=== PATIENT | female | born 1975 | race Caucasian/White ===

== ENCOUNTER → 2019-12-01 08:00 | Outpatient (CLI) | payer MEDICAID, SELFPAY ==
[2019-10-22 08:09] VITALS: BMI 31.2
--- NOTE | 2019-12-01 10:22 | PFTCOMP ---
COMPLETE PULMONARY FUNCTION TEST INTERPRETATION Brief HPI: Patient is a 44 year old Black female, currently under the care of Mariela Goodrich, who presents to [facility] for complete pulmonary function tests secondary to diagnosis of dyspnea. Respiratory therapist reports good effort and reproducible results. Interpretation: Forced expiration spirometry shows no large airways obstructive ventilatory defect with an FEV1 of 132% predicted. There is no significant bronchodilator response by strict ATS criteria. Spirograms are of good quality and plateau normally. The respiratory flow volume loop shows a normal pattern. Lung volumes by body plethysmography show a normal total lung capacity at 4.61 L, 104% predicted. All other lung volumes are within normal limits. Diffusion capacity by carbon monoxide is normal at 76% predicted. The airway resistance is normal. No previous pulmonary function tests were available for review. Impression: These pulmonary function tests are within normal limits
== END ==
PROVIDERS: PCP Nurse Practitioner Family; Referring Provider Nurse Practitioner Acute Care; Visit Provider Nurse Practitioner Acute Care
DX: R06.02 Shortness of breath (principal)
CPT/HCPCS: 94060; 94726; 94729

== ENCOUNTER → 2019-12-22 09:54 | Outpatient (CLI) | payer MEDICAID, SELFPAY ==
[2019-10-22 08:09] VITALS: BMI 31.2
--- NOTE | 2019-12-22 09:54 | ECHOCS_ITS ---
Reason For Study: DYSPNEA Procedure This was a 2D Doppler, Color Flow transthoracic echocardiogram. Exam performed in department. Left Ventricle Normal LV size. Left ventricular systolic function is normal. The estimated ejection fraction is 65 %. Stage 1 diastolic dysfunction. No regional wall motion abnormalities noted. Right Ventricle Normal RV size. Normal systolic function. Atria Normal left atrium. Normal right atrium. Mitral Valve Normal mitral valve. Mild (1+) eccentric mitral valve insufficiency. Tricuspid Valve Normal tricuspid valve. Mild tricuspid valve insufficiency. Pulmonary artery systolic pressure is 28 mmHg. Aortic Valve Trisinus/trileaflet aortic valve. Pulmonic Valve Normal pulmonic valve. Great Vessels Normal aortic root. The pulmonary artery is normal size. Normal inferior vena cava. Pericardium/Pleural No pericardial effusion. Medication 22 gauge I.V. with prn adaptor inserted into right arm. Diluted definity 3.5ml given slow IV push to enhance endocardial definition. MMode/2D Measurements & Calculations LVIDd: 4.5 cm IVSd: 0.64 cm Ao root diam: 3.1 cm LVIDs: 3.1 cm LVPWd: 0.66 cm RVDd: 3.0 cm FS: 30.9 % LAV(MOD-bp): 39.0 ml LVAd ap4: 27.1 cm2 SV(MOD-sp4): 49.9 ml LAV(MOD-bp) Indexed: 22.7 ml/m2 EDV(MOD-sp4): 71.5 ml LAV(MOD-sp2): 29.9 ml EDV(sp4-el): 72.7 ml LAV(MOD-sp4): 41.0 ml LVAs ap4: 12.8 cm2 ESV(MOD-sp4): 21.5 ml ESV(sp4-el): 22.1 ml EF(MOD-sp4): 69.9 % EF(sp4-el): 69.5 % SV(sp4-el): 50.5 ml LA A4 area: 16.1 cm2 LA dimension(2D): 3.8 cm RA A4 area: 13.6 cm2 Time Measurements MV dec time: 0.39 sec Doppler Measurements & Calculations MV E max sharan: 55.3 cm/sec Lat Peak E' Sharan: 9.8 cm/sec Med Peak E' Sharan: 6.6 cm/sec MV A max sharan: 79.9 cm/sec E/E' lat: 5.6 E/E' med: 8.4 MV E/A: 0.69 Ao V2 max: 130.1 cm/sec LV V1 max: 117.6 cm/sec PA V2 max: 98.2 cm/sec Ao max P.8 mmHg LV V1 max P.5 mmHg TR max sharan: 244.2 cm/sec TR max P.8 mmHg Interpretation Summary Normal LV size. Left ventricular systolic function is normal. The estimated ejection fraction is 65 %. Pulmonary artery systolic pressure is 28 mmHg. Stage 1 diastolic dysfunction. Contrast injection was performed. Ordering Physician: Yang Ames Referring Physician: ADAM RENAE Performed By: Luz Maria Romero, ROSALIE, RVT
== END ==
PROVIDERS: PCP Nurse Practitioner Family; Referring Provider Internal Medicine Critical Care Medicine; Visit Provider Internal Medicine Critical Care Medicine
DX: R06.02 Shortness of breath (principal)
CPT/HCPCS: 93306; Q9957; A4216; C8929

== ENCOUNTER → 2020-01-20 13:36 | Outpatient (CLI) | payer MEDICAID, SELFPAY ==
[2020-01-05 09:01] VITALS: BMI 32.8
[2020-01-20 14:08] VITALS: PULSE 100; PULSE 104; PULSE 105; PULSE 106; PULSE 109; PULSE 87; PULSE 91; PULSE 93; O2SAT 96; O2SAT 97; O2SAT 98; O2SAT 99
--- NOTE | 2020-01-21 13:10 | WT_ITS ---
PSN 6 Minute Walk Test - 6 Minute Walk Test 6 Minute Walk Test: 6 Minute Walk Test PSN:6-Minute Walk Test Start: 01/20/20 14:08 Freq: Status: Active Protocol: [id number] Document 01/20/20 14:08 [facility] (Rec: 01/20/20 14:14 [facility] [id number]) 6 Minute Walk Test Date Performed 01/20/20 Time Performed 13:45 Height 5 ft 1 in Weight: 165 lb Weight in Pounds 165.[address]: Anaid BUNDY Assistive device used: None Pre-test Oxygen Delivery Method Room Air Pulse Ox (%) 98 Pulse Rate (60-100 beats/min) 87 Dyspnea Cuco Scale (0-10) 1 Exertion Cuco Scale (6-20) 6 1st minute Oxygen Delivery Method Room Air Pulse Ox (%) 96 Pulse Rate (60-100 beats/min) 109 H 2nd minute Oxygen Delivery Method Room Air Pulse Ox (%) 99 Pulse Rate (60-100 beats/min) 100 3rd minute Oxygen Delivery Method Room Air Pulse Ox (%) 98 Pulse Rate (60-100 beats/min) 104 H 4th minute Oxygen Delivery Method Room Air Pulse Ox (%) 98 Pulse Rate (60-100 beats/min) 105 H 5th minute Oxygen Delivery Method Room Air Pulse Ox (%) 98 Pulse Rate (60-100 beats/min) 106 H 6th minute Oxygen Delivery Method Room Air Pulse Ox (%) 97 Pulse Rate (60-100 beats/min) 93 Dyspnea Cuco Scale (0-10) 2 Exertion Cuco Scale (6-20) 11 Post-test Oxygen Delivery Method Room Air Pulse Ox (%) 98 Pulse Rate (60-100 beats/min) 91 Full Laps Walked 25 Partial Lap, Number of Tiles Walked 39 Total Distance Walked (ft) 1514 - Interpretation Interpretation: The patient ambulated 1514 feet over the course of 6 minutes beginning on room air without assistive devices or breaks. Pretesting oxygen saturation was noted to be 98% on room air. With ambulation, the becca oxygen saturation was 96%. There was no significant exertional oxygen desaturation. - Recommendations Recommendations: There is no indication for the use of supplemental oxygen at this time.
== END ==
PROVIDERS: PCP Nurse Practitioner Family; Referring Provider Nurse Practitioner Acute Care; Visit Provider Nurse Practitioner Acute Care
DX: R06.02 Shortness of breath (principal)
CPT/HCPCS: 94618

== ENCOUNTER → 2020-01-26 22:31 | Outpatient (CLI) | payer MEDICAID, SELFPAY ==
[2020-01-05 09:01] VITALS: BMI 32.8
== END ==
PROVIDERS: PCP Nurse Practitioner Family; Referring Provider Nurse Practitioner Acute Care; Visit Provider Nurse Practitioner Acute Care
DX: G47.33 Obstructive sleep apnea (adult) (pediatric) (principal)
CPT/HCPCS: 95810

== ENCOUNTER → 2022-05-18 | Outpatient (CLI) | payer MEDICAID, SELFPAY ==
[2022-05-18 15:34] LABS: Absolute Lymphocyte Count 2.39 X10^3/uL (0.83-4.51); Absolute Neutrophil Count 3.5 X10^3/uL (2.0-7.7); Basophil# 0.03 X10^3/uL; Basophil% 0.5 % (0-1); Eosinophil# 0.08 X10^3/uL; Eosinophils% 1.2 % (0-5); Hematocrit 38.7 % (37-47); Hemoglobin 13.4 g/dL (12.0-15.0); Lymphocyte # 2.39 X10^3/ul (0.83-4.51); Lymphocyte % 37.2 % (19-41); Mean Corp Hgb Conc 34.6 g/dL (32-36); Mean Corpuscular Hgb 30.9 pg (27.0-32.0); Mean Corpuscular Volume 89.4 fL (81-99); Mean Platelet Vol. 10.8 fl (6.2-12.0); Monocyte# 0.46 X10^3/uL; Monocyte% 7.2 % (0-10); NRBC Flagged by Analyzer 0 % (0-5); Neutrophil # 3.45 X10^3/uL (2.7-7.7); Neutrophil % 53.6 % (47-70); Platelet Count 320 K/mm3 (150-450); RBC Distribution Width CV 11.7 % (11.6-14.6); RBC Distribution Width SD 37.5 fl (35.1-43.9); Red Blood Count 4.33 M/mm3 (4.2-5.4); White Blood Count 6.4 K/mm3 (4.4-11.0)
[2022-05-18 16:20] LABS: ALB/GLOB Ratio 0.9 RATIO (0.9-2.4); AST(SGOT) 15 U/L (15-37); Alanine Aminotransfer ALT/SGPT 24 U/L (13-56); Albumin, Serum 3.9 g/dL (3.2-5.0); Alkaline Phosphatase 83 U/L (45-117); Anion Gap 10 (5-15); BUN 14 mg/dL (7-18); BUN/Creat Ratio 21.9 RATIO (10-20); Calcium,Total 9.5 mg/dL (8.5-10.1); Chloride 103 mmol/L (98-107); Creatinine, Serum 0.64 mg/dL (0.55-1.02); EST Glomerular Filtration Rate 106 mL/min (>60); Est Glom Filt Rate - Afr Amer 128 mL/min (>60); Globulin 4.2 g/dL (2.2-4.2); Glucose 89 mg/dL (74-106); Protein, Total 8.1 g/dL (6.4-8.2); Sodium Level 139 mmol/L (136-145); Thyroid Stim Hormone (TSH) 1.07 uIU/mL (0.358-3.74)
[2022-05-22 12:08] LABS: PROEL- A/G Ratio 1.2 (0.7-1.7); PROEL- Albumin 4.1 g/dL (2.9-4.4); PROEL- Alpha-1 Globulin 0.3 g/dL (0.0-0.4); PROEL- Alpha-2 Globulin 0.8 g/dL (0.4-1.0); PROEL- Gamma Globulin 1.2 g/dL (0.4-1.8); PROEL- Globulin, Total 3.4 g/dL (2.2-3.9); PROEL- TOTAL PROTEIN 7.5 g/dL (6.0-8.5)
[2022-05-22 18:47] LABS: Lyme Scn Total Ab w/Rflx Negative (Negative)
== END | disposition home or self-care (01) ==
LOC: MFPLAB 12:09
PROVIDERS: PCP Family Medicine; Referring Provider Family Medicine; Visit Provider Family Medicine
DX: I88.9 Nonspecific lymphadenitis, unspecified (principal)
CPT/HCPCS: 36415; 80053; 84165; 84443; 85025; 86140; 86618

== ENCOUNTER 2022-05-26 12:03 | Outpatient (CLI) | payer MEDICAID, SELFPAY ==
--- NOTE | 2022-05-26 12:06 | US_ITS ---
INDICATION: R cervical adenopathy EXAMINATION: US Head/Neck Soft Tissue TECHNIQUE: Nowak scale and color doppler imaging was performed of the soft tissues of neck at region of clinical concern. COMPARISON: None. FINDINGS: There are 2 separate hypoechoic lymph nodes within region of clinical concern at posterolateral right neck. Largest lymph node measures 2.7 x 0.6 x 1.1 cm. Smaller lymph node measures 1.0 x 0.4 x 0.5 cm. No organized fluid collection detected. US/Head/Neck Soft Tissue IMPRESSION: Lymph nodes within right posterolateral neck, largest measuring 6 mm short axis diameter and 2.7 cm long diameter. Follow-up as clinically warranted. Electronically Signed: Jose Mcwilliams MD at 6:17 EST ,
== END 2022-05-26 23:59 | disposition home or self-care (01) ==
LOC: US 12:06
PROVIDERS: PCP Family Medicine; Visit Provider Family Medicine
DX: I88.9 Nonspecific lymphadenitis, unspecified (principal); R19.5 Other fecal abnormalities
CPT/HCPCS: 76536; 83630; 83986; 87506

== ENCOUNTER → 2022-05-26 | Outpatient (CLI) | payer MEDICAID, SELFPAY | END | disposition home or self-care (01) | LOC: LABSPEC 11:16 | PROVIDERS: PCP Family Medicine; Referring Provider Family Medicine; Visit Provider Family Medicine | DX: R19.5 Other fecal abnormalities (principal) | CPT/HCPCS: 83986; 87506; 83630 ==

== ENCOUNTER → 2022-07-27 | Outpatient (CLI) | payer MEDICAID, SELFPAY ==
[2022-07-27 13:06] LABS: Lipase 44 U/L (13-75)
[2022-07-28 15:08] LABS: Endomysial Antibody IgA Negative (Negative); Immunoglobulin A 246 mg/dL (87-352); t-Transglutaminase IgA <2 U/mL (0-3)
[2022-07-30 15:07] LABS: Anti-Centromere B Ab <0.2 AI (0.0-0.9); Anti-Chromatin <0.2 AI (0.0-0.9); Anti-Jo <0.2 AI (0.0-0.9); Anti-Scleroderma-70 AB <0.2 AI (0.0-0.9); Anti-dsDNA Ab <1 IU/mL (0-9); Beef <0.10 kU/L (Class 0); Chocolate <0.10 kU/L (Class 0); Corn <0.10 kU/L (Class 0); Egg, Whole <0.10 kU/L (Class 0); Milk (Cow) <0.10 kU/L (Class 0); Peanut <0.10 kU/L (Class 0); Pork <0.10 kU/L (Class 0); RNP Ab <0.2 AI (0.0-0.9); SJOGREN'S Anti-SS-A test < 0.2 AI (0.0-0.9); SJOGREN'S Anti-SS-B test < 0.2 AI (0.0-0.9); Smith Ab <0.2 AI (0.0-0.9); Soybean <0.10 kU/L (Class 0); Wheat <0.10 kU/L (Class 0)
== END | disposition home or self-care (01) ==
PROVIDERS: PCP Family Medicine; Referring Provider Nurse Practitioner Adult Health; Visit Provider Nurse Practitioner Adult Health
DX: R10.9 Unspecified abdominal pain (principal); R19.7 Diarrhea, unspecified; R11.10 Vomiting, unspecified
CPT/HCPCS: 36415; 82784; 83516; 83690; 86003; 86005; 86225; 86235; 86255

== ENCOUNTER → 2022-08-04 | Outpatient (CLI) | payer MEDICAID, SELFPAY ==
--- NOTE | 2022-08-04 10:54 | US_ITS ---
STUDY: ABDOMINAL ULTRASOUND REASON FOR EXAM: Female, 47 years old. Abdominal pain. Diarrhea. Vomiting. TECHNIQUE: Transabdominal ultrasound was performed with real-time and static george scale imaging. TECHNICAL QUALITY: Adequate. COMPARISON: None. FINDINGS: Liver: The liver measures 14 cm. There is increased echogenicity consistent with fatty infiltration. The bile ducts are within normal limits. There is hepatic color flow. The direction of portal flow is hepatopetal. There is no demonstrated mass lesion. Portal vein measurement: Gallbladder: The patient is status post cholecystectomy. Common Bile Duct (C.B.D.): The common bile duct measures 5.6 mm. Pancreas: Normal size of the head, body and tail of the pancreas. There is normal echogenicity of the pancreas. There is no demonstrated pancreatic mass or cyst. Spleen: Normal size of the spleen. The spleen measures 10.4 cm x 4.9 cm x 4.7 cm. Right Kidney: Normal size of the right kidney. The right kidney measures 10.8 cm x 5 cm x 5.3 cm. Normal renal cortex. The right cortex measures 1.6 cm. There is no demonstrated renal mass or cyst. There is no right hydronephrosis. Findings suggestive of a 2 tiny nonobstructive calculi in the kidney. The larger measures 3 mm x 3 mm x 2 mm. This is in the upper pole. Left Kidney: Normal size of the left kidney. The left kidney measures 10.3 cm x 4.6 cm x 4.8 cm. Normal renal cortex. The left cortex measures 1.2 cm. There is no demonstrated renal mass or cyst. There is no left hydronephrosis. Aorta: Unremarkable. I.V.C.: The IVC is patent. There is no ascites. US/Abdomen Complete IMPRESSION: Status post cholecystectomy. Fatty infiltration of the liver. 2 tiny nonobstructive right intrarenal calculi. Electronically Signed: Ochoa Friend MD at 12:59 EDT ,
== END | disposition home or self-care (01) ==
LOC: US 10:53
PROVIDERS: PCP Family Medicine; Referring Provider Nurse Practitioner Adult Health; Visit Provider Nurse Practitioner Adult Health
DX: R10.9 Unspecified abdominal pain (principal); R19.7 Diarrhea, unspecified
CPT/HCPCS: 76700

== ENCOUNTER → 2022-08-17 | Outpatient (CLI) | payer MEDICAID, SELFPAY ==
[2022-08-27 18:07] LABS: Calprotectin, Stool 7 ug/g (0-120)
== END | disposition home or self-care (01) ==
LOC: LABSPEC 17:41
PROVIDERS: PCP Family Medicine; Visit Provider Nurse Practitioner Adult Health
DX: R10.9 Unspecified abdominal pain (principal); R19.7 Diarrhea, unspecified
CPT/HCPCS: 83993

== ENCOUNTER → 2022-08-18 | Outpatient (CLI) | payer MEDICAID, SELFPAY ==
--- NOTE | 2022-08-18 17:47 | CT_ITS ---
STUDY: CT ABDOMEN AND PELVIS WITH CONTRAST REASON FOR EXAM: Female, 47 years old. abd pain, diarrhea RADIATION DOSAGE (If Supplied By Facility): CTDIvol = ( 19.69 ) mGy, DLP = ( 806.35 ) mGycm TECHNIQUE: Transaxial images were obtained from the dome of the diaphragm to the symphysis pubis without oral contrast. Oral and amp; IV Readi-CAT and amp; 100mL Isovue-370 was administered. Sagittal and coronal images were reconstructed. Individualized dose optimization techniques were used for this CT. COMPARISON: None. FINDINGS: The visualized lung bases are unremarkable. The visualized portions of the heart are within normal limits. Normal liver. There are surgical clips in the gallbladder fossa consistent with a prior cholecystectomy. Normal spleen. Normal pancreas. Normal bilateral adrenal glands. There are no acute abnormalities of the kidneys. Kidneys have bilateral small lower pole nonobstructing stones measuring as much as 3 mm. Normal visualized stomach. Normal small intestine. Normal colon. There are surgical clips in the region of the appendix consistent with a prior appendectomy. Normal abdominal aorta. Normal inferior vena cava. Normal retroperitoneum. Normal urinary bladder. There is absence of the uterus consistent with a prior hysterectomy. Normal abdominal wall. Normal osseous structures. CT/Abdomen/Pelvis WITH Contrast IMPRESSION: No definite acute abnormality. Small nonobstructing stones in the lower poles of both kidneys. Cysts Electronically Signed: Morro Perrin MD at 16:37 EDT ,
== END | disposition home or self-care (01) ==
LOC: CT 17:45
PROVIDERS: PCP Family Medicine; Referring Provider Nurse Practitioner Adult Health; Visit Provider Nurse Practitioner Adult Health
DX: R10.9 Unspecified abdominal pain (principal); R19.7 Diarrhea, unspecified
CPT/HCPCS: 74177; Q9967

== ENCOUNTER 2022-10-03 13:57 | Day surgery (SDC) | payer MEDICAID, SELFPAY ==
[2022-10-03 14:24] VITALS: BP 125/77; PULSE 85; RESP 18; TEMP 36.4; O2SAT 99; BMI 29.9
[2022-10-03] MEDS: Lactated Ringers 1,000 ML 15 ML IV (14:36)
--- NOTE | 2022-10-03 15:00 | EGD_PTH ---
PATIENT: LYNNE KAPOOR LOC: BOB U#:[id number] AGE/SX: 47/F ROOM: RE10/03/[address]: Dr. Tanner Sylvester DO : 1975 BED: DIS: 10/03/2022 SPEC #: [id number] RECD: 10/03/22 16:55 STATUS: ALBARO KEHINDE #: [id number] NILA: 10/03/22 15:[address]: Tanner Sylvester DEPT: SURGICAL PATHOLOGY RECD BY: Emy Mullins ENTERED: 10/04/22 09:26 SP TYPE: EGD BIOPSY BAILEY DR: Dr. Ananda Noriega MD Tissues: A - Duodenum, NOS B - Esophagus, NOS C - Ileum, NOS D - Cecum, NOS E - COLON BIOPSY F - Sigmoid colon biopsy Procedures: Surgery Specimen Level IV HEADER OPERATION: Colonoscopy with biopsies, EGD with biopsies (MAC) PRE-OP DIAGNOSIS: Diarrhea, fatty liver, liver lesion TISSUE SUBMITTED: A - Duodenum, B - Distal esophagus, C - Terminal ileum, D - Cecal biopsy, E - Random colon, F - Sigmoid and rectum MICROSCOPIC DIAGNOSIS A. Duodenum, biopsy: No pathologic change. B. Distal esophagus, biopsy: Gastroesophageal junctional mucosa with mild chronic inflammation. Focal changes of reflux. No evidence of goblet cell metaplasia. See comment. C. Terminal ileum, biopsy: No pathologic change. D. Cecum, biopsy: Mild melanosis coli. E. Colon, random biopsy: No pathologic change. F. Sigmoid colon and rectum, biopsies: Focal hyperplastic change. AM:erendira 10/05/2022 COMMENT B. Alcian blue/PAS stain with matched control supports the above diagnosis. MICROSCOPIC DESCRIPTION Slides are reviewed. GROSS DESCRIPTION A - Received in fixative is one container labeled with the patient's name and designated duodenum biopsy. The specimen consists of multiple irregular fragments of light holland soft tissue that in aggregate measure 1.5 x 0.4 x 0.1 cm. The specimen is totally submitted in one cassette. B - Received in fixative is one container labeled with the patient's name and designated distal esophagus. The specimen consists of multiple irregular fragments of light holland soft tissue that in aggregate measure 1.0 x 0.3 x 0.1 cm. The specimen is totally submitted in one cassette. C - Received in fixative is one container labeled with the patient's name and designated terminal ileum. The specimen consists of multiple irregular fragments of light holland soft tissue that in aggregate measure 0.8 x 0.4 x 0.1 cm. The specimen is totally submitted in one cassette. D - Received in fixative is one container labeled with the patient's name and designated cecal biopsy. The specimen consists of multiple irregular fragments of light holland soft tissue that in aggregate measure 1.5 x 0.3 x 0.1 cm. The specimen is totally submitted in one cassette. E - Received in fixative is one container labeled with the patient's name and designated random colon biopsy. The specimen consists of multiple irregular fragments of light holland soft tissue that in aggregate measure 1.0 x 0.3 x 0.1 cm. The specimen is totally submitted in one cassette. F - Received in fixative is one container labeled with the patient's name and designated sigmoid and rectum. The specimen consists of multiple irregular fragments of light holland soft tissue that in aggregate measure 1.0 x 0.3 x 0.1 cm. The specimen is totally submitted in one cassette. / SJ:rg 10/04/2022 TC:3 CPT: 01514 x6, 31534
--- NOTE | 2022-10-03 15:32 | HP.PCM_ITS ---
History and Physical Date of Admission: 10/03/22 Chief Complaint: cyclical vomiting, diarrhea Details: LYNNE KAPOOR, is a 47 F who presents to the office today to establish with Gastroenterology for episodes of vomiting, as well as other GI symptoms that occur more frequently. The vomiting episodes have occurred since 2013 when she had her last child. 2-3x per year gets episode of nausea and vomiting to the point of hematemesis. Etiology is unknown. No triggers she can discern. Symptoms may last a few days. On a more regular basis she deals with heartburn, gas, bloating, abdominal pain, and diarrhea. Omeprazole helps with heartburn, otherwise has esophageal burning and bad taste. Rare feeling of food getting stuck. Lots of gas, bloating. Has epigastric discomfort when bloated. Gets squeezing abdominal pain, occurs at least 2x per week, across middle of abd, doesn't radiate, not related to BMs necessarily, no relieving factors, thinks maybe it's gas. Almost never has solid stool, always runny or very soft. Can be dark tarry. No hematochezia. Can have days of no BM, then other days she has urgent frequent BMs. Not related to eating. No triggers other than dairy which she avoids. Poor appetite. Gets full quickly. No nausea or vomiting except during the episodes a few times a year. Neg stool lactoferrin, neg enteric pathogens CRP 13, K+3 Always cold Comorbidities include MARLEN, anxiety, depression, PSH: hysterectomy, cholecystectomy, , tubal ligation, appy ROS Const Constitutional: Positive for fatigue and weight change (weight loss); No fever(s), frequent falls or headache(s) ENT ENT: No headache(s) or difficulty swallowing Cardio Cardiology: No leg pain with exertion Gastro GI: Positive for bloating, diarrhea and heartburn; No abdominal pain, change in bowel habits, constipation, difficulty swallowing, Vomiting blood/hematemesis, Blood in stool, nausea/dyspepsia or vomiting Musc Musculoskeletal: Positive for joint pain, back pain and stiffness; No abnormal gait, joint swelling, muscle cramps, muscle weakness, numbness, tingling, Arthritis, sciatica, leg pain at night or leg pain with exertion Skin Skin: No dry skin, lesions, itchy eyes or rash Neuro Neurology: No abnormal gait, dizziness, frequent falls, headache(s), numbness, tingling, tremor(s), Increased tone in limbs, paralysis or seizures Psych Psychiatric: Positive for anxiety, Positive for depression, No paranoia, No Behavioral Problems, No Compulsive Behavior, No hyperactivity, No inattentiveness, No obsessions/compulsions, No Temper Tantrums and No suicidal ideation Endo Endocrine: Positive for fatigue and weight change (weight loss) Aller/Imm Allergy/Immunologic: No itchy eyes Patrice/Lymp Hematologic/Lymphatic: Positive for easy bruising; No easy bleeding Exam Const General: cooperative, comfortable and no acute distress Nutritional Appearance: overweight Orientation: alert, awake and oriented x3 HENMT Head: normal to inspection Eyes Sclera: sclerae normal Resp Effort & Inspection: normal respiratory effort GI Inspection: normal to inspection Palpation: soft, no hepatosplenomegaly, no masses and nontender Skin General: no rashes or lesions noted Neuro Gait: normal gait Psych Mood: euthymic mood Quality Reporting Tobacco Screening ([facility] 138) Smoking Status: Never smoker Assessment and Plan Assessment and Plan (1) Diarrhea: Status: Chronic Plan: 47 yr old female with 9 yr hx of episodic vomiting, approx 3x per yr, as well as ongoing heartbun, bloating, gas, abd pain and diarrhea. DDx includes IBS, IBD, celiac, bile acid reflux, bile diarrhea Blood tests for IBD, celiac, pancreas, food allergies Stool calprotectin US then CT EGD and colonoscopy Dicyclomine 10 mg bid (2) Abdominal pain: Status: Chronic Plan: as above (3) Vomiting: Status: Chronic Plan: as above Orders: Orders Miscellaneous Lab Procedure Today R10.9 - Unspecified abdominal pain, R19.7 - Diarrhea, unspecified Allergen, Rast Food Profile Today R10.9 - Unspecified abdominal pain, R19.7 - Diarrhea, unspecified MISTY Comprehensive Panel Today R10.9 - Unspecified abdominal pain, R19.7 - Diarrhea, unspecified Calprotectin, Stool Today R10.9 - Unspecified abdominal pain, R19.7 - Diarrhea, unspecified Celiac Disease Profile Today R10.9 - Unspecified abdominal pain, R19.7 - Diarrhea, unspecified Abdomen Complete Today R10.9 - Unspecified abdominal pain, R19.7 - Diarrhea, unspecified Lipase Today R10.9 - Unspecified abdominal pain, R11.10 - Vomiting, unspecified, R19.7 - Diarrhea, unspecified Medications: New dicyclomine 10 mg PO BID 60 caps 2RF I have examined the patient and the H&P has been reviewed. There are no clinical changes since date of exam.
[2022-10-03 16:10] VITALS: BP 125/77; BP 150/85; PULSE 86; RESP 20; TEMP 36.6; O2SAT 98
--- NOTE | 2022-10-03 16:12 | OP.EGD_ITS ---
Patient Name: Sunshine Kauffman Procedure Date: 10/03/2022 3:27 PM Date of : 1975 Age: 47 Procedure: Upper GI endoscopy Indications: Epigastric abdominal pain, Functional Dyspepsia Providers: Tanner Sylvester DO Medicines: Monitored Anesthesia Care Patient Profile: This is a 47 year old female. Refer to note in patient chart for documentation of history and physical. Patient has symptoms of chronic abdominal cramping and chronic epigastric abdominal pain. Complications: No immediate complications. Procedure: Pre-Anesthesia Assessment: - Prior to the procedure, a History and Physical was performed, and patient medications and allergies were reviewed. The patient is competent. The risks and benefits of the procedure and the sedation options and risks were discussed with the patient. All questions were answered and informed consent was obtained. Patient identification and proposed procedure were verified by the physician. Mental Status Examination: normal. CV Examination: normal. Prophylactic Antibiotics: The patient does not require prophylactic antibiotics. Prior Anticoagulants: The patient has taken no previous anticoagulant or antiplatelet agents. After reviewing the risks and benefits, the patient was deemed in satisfactory condition to undergo the procedure. The anesthesia plan was to use monitored anesthesia care (MAC). Immediately prior to administration of medications, the patient was re-assessed for adequacy to receive sedatives. The heart rate, respiratory rate, oxygen saturations, blood pressure, adequacy of pulmonary ventilation, and response to care were monitored throughout the procedure. The physical status of the patient was re-assessed after the procedure. After obtaining informed consent, the endoscope was passed under direct vision. Throughout the procedure, the patient's blood pressure, pulse, and oxygen saturations were monitored continuously. The pediatric colonoscope was introduced through the mouth, and advanced to the second part of duodenum. The upper GI endoscopy was accomplished without difficulty. The patient tolerated the procedure well. Scope In: 3:42:07 PM Scope Out: 3:46:12 PM Total Procedure Duration Time 0 hours 4 minutes 5 seconds Findings: The Z-line was irregular and was found 38 cm from the incisors. Biopsies were taken with a cold forceps for histology. Verification of patient identification for the specimen was done. Estimated blood loss was minimal. A medium-sized hiatal hernia was present. No other significant abnormalities were identified in a careful examination of the stomach. Patchy mildly erythematous mucosa without active bleeding and with no stigmata of bleeding was found in the duodenal bulb. Biopsies were taken with a cold forceps for histology. Verification of patient identification for the specimen was done. Estimated blood loss was minimal. Impression: - Z-line irregular, 38 cm from the incisors. Biopsied. - Medium-sized hiatal hernia. - Erythematous duodenopathy. Biopsied. Recommendation: - Discharge patient to home. - Resume previous diet. - Continue present medications. - Await pathology results. Procedure Code(s): --- Professional --- 63546, Esophagogastroduodenoscopy, flexible, transoral; with biopsy, single or multiple CPT copyright 2017 [employer]. All rights reserved. The codes documented in this report are preliminary and upon electrical power station technician review may be revised to meet current compliance requirements. Tanner Sylvester DO 10/03/2022 4:12:13 PM This report has been signed electronically. Number of Addenda: 0 Note Initiated On: 10/03/2022 3:27 PM
--- NOTE | 2022-10-03 16:13 | OP.CCLET_ITS ---
10/03/2022 Ananda Noriega [address] [place] [address] Re : Upper GI endoscopy procedure for Sunshine Byall Dear Dr. Noriega This procedure was performed on Monday, October 03, 2022. My impressions and recommendations are as follows: Impressions : - Z-line irregular, 38 cm from the incisors. Biopsied. - Medium-sized hiatal hernia. - Erythematous duodenopathy. Biopsied. Recommendations : - Discharge patient to home. - Resume previous diet. - Continue present medications. - Await pathology results. My findings are described in the full procedure note, which is enclosed. If I can be of further assistance, please feel free to contact me at . Sincerely, Tanner Sylvester, 10/03/2022 4:12:13 PM This report has been signed electronically.
[2022-10-03 16:20] VITALS: BP 125/77; BP 127/94; PULSE 98; RESP 18; O2SAT 100
--- NOTE | 2022-10-03 16:21 | OP.COLON_ITS ---
Patient Name: Sunshine Kauffman Procedure Date: 10/03/2022 3:46 PM Date of : 1975 Age: 47 Procedure: Colonoscopy Indications: Clinically significant diarrhea of unexplained origin Providers: Tanner Sylvester DO Medicines: Monitored Anesthesia Care Patient Profile: This is a 47 year old female. Refer to note in patient chart for documentation of history and physical. Patient has symptoms of chronic abdominal cramping and chronic epigastric abdominal pain. Last Colonoscopy: date unknown. Unable to locate last colonoscopy report. Complications: No immediate complications. Procedure: Pre-Anesthesia Assessment: - Prior to the procedure, a History and Physical was performed, and patient medications and allergies were reviewed. The patient is competent. The risks and benefits of the procedure and the sedation options and risks were discussed with the patient. All questions were answered and informed consent was obtained. Patient identification and proposed procedure were verified by the physician. Mental Status Examination: normal. CV Examination: normal. Prophylactic Antibiotics: The patient does not require prophylactic antibiotics. Prior Anticoagulants: The patient has taken no previous anticoagulant or antiplatelet agents. After reviewing the risks and benefits, the patient was deemed in satisfactory condition to undergo the procedure. The anesthesia plan was to use monitored anesthesia care (MAC). Immediately prior to administration of medications, the patient was re-assessed for adequacy to receive sedatives. The heart rate, respiratory rate, oxygen saturations, blood pressure, adequacy of pulmonary ventilation, and response to care were monitored throughout the procedure. The physical status of the patient was re-assessed after the procedure. After I obtained informed consent, the scope was passed under direct vision. Throughout the procedure, the patient's blood pressure, pulse, and oxygen saturations were monitored continuously. The pediatric colonoscope was introduced through the anus and advanced to the cecum, identified by appendiceal orifice and ileocecal valve. The colonoscopy was performed without difficulty. The patient tolerated the procedure well. The quality of the bowel preparation was good. Scope In: 3:47:56 PM Scope Withdrawal Time 0 hours 8 minutes 46 seconds Scope Out: 4:04:30 PM Total Procedure Duration Time 0 hours 16 minutes 34 seconds Findings: The perianal and digital rectal examinations were normal. An area of mildly congested mucosa was found in the recto-sigmoid colon, in the sigmoid colon, in the proximal sigmoid colon, in the descending colon and at the splenic flexure. Biopsies were taken with a cold forceps for histology. Verification of patient identification for the specimen was done. Estimated blood loss was minimal. A patchy area of the terminal ileum was congested. Biopsies were taken with a cold forceps for histology. Verification of patient identification for the specimen was done. Estimated blood loss was minimal. Impression: - Congested mucosa in the recto-sigmoid colon, in the sigmoid colon, in the proximal sigmoid colon, in the descending colon and at the splenic flexure. Biopsied. - Congested mucosa in the terminal ileum. Biopsied. Recommendation: - Discharge patient to home. - Resume previous diet. - Continue present medications. - Await pathology results. - Repeat colonoscopy in 5 years for surveillance. Procedure Code(s): --- Professional --- 46112, Colonoscopy, flexible; with biopsy, single or multiple CPT copyright 2017 [employer]. All rights reserved. The codes documented in this report are preliminary and upon welder gun review may be revised to meet current compliance requirements. Tanner Sylvester DO 10/03/2022 4:20:25 PM This report has been signed electronically. Number of Addenda: 0 Note Initiated On: 10/03/2022 3:46 PM
--- NOTE | 2022-10-03 16:21 | OP.CCLET_ITS ---
10/03/2022 Ananda Noriega [address] [facility] [address] [place] [address] Re : Colonoscopy procedure for Sunshine Byall Dear Dr. Noriega This procedure was performed on Monday, October 03, 2022. My impressions and recommendations are as follows: Impressions : - Congested mucosa in the recto-sigmoid colon, in the sigmoid colon, in the proximal sigmoid colon, in the descending colon and at the splenic flexure. Biopsied. - Congested mucosa in the terminal ileum. Biopsied. Recommendations : - Discharge patient to home. - Resume previous diet. - Continue present medications. - Await pathology results. - Repeat colonoscopy in 5 years for surveillance. My findings are described in the full procedure note, which is enclosed. If I can be of further assistance, please feel free to contact me at . Sincerely, Tanner Sylvester, 10/03/2022 4:20:25 PM This report has been signed electronically.
[2022-10-03 16:24] VITALS: BP 108/88; BP 125/77; PULSE 100; RESP 18; O2SAT 100
[2022-10-03 16:29] VITALS: BP 118/84; BP 125/77; PULSE 83; RESP 18; TEMP 36.9; O2SAT 99
[2022-10-03 16:37] VITALS: BP 125/77
== END 2022-10-03 17:03 | disposition home or self-care (01) ==
LOC: EN 13:58 → AC 14:00
PROVIDERS: PCP Family Medicine; Referring Provider Family Medicine; Visit Provider Internal Medicine Gastroenterology
PROC: 0DJD8ZZ Inspection of Lower Intestinal Tract, Via Natural or Artificial Opening Endoscopic (ICD-10-PCS; CPT 45378; principal; 2022-10-03 14:55)
DX: K44.9 Diaphragmatic hernia without obstruction or gangrene (principal); F41.9 Anxiety disorder, unspecified; R19.7 Diarrhea, unspecified; K63.89 Other specified diseases of intestine; R10.13 Epigastric pain; R14.0 Abdominal distension (gaseous); K92.0 Hematemesis; G47.33 Obstructive sleep apnea (adult) (pediatric); F32.9 Major depressive disorder, single episode, unspecified
CPT/HCPCS: 43239; 45380; 88305; J7120; J2405

== ENCOUNTER → 2022-11-16 | Outpatient (CLI) | payer MEDICAID, SELFPAY ==
[2022-11-16 15:59] LABS: Absolute Lymphocyte Count 2.26 X10^3/uL (0.83-4.51); Absolute Neutrophil Count 4.6 X10^3/uL (2.0-7.7); Basophil# 0.03 X10^3/uL; Basophil% 0.4 % (0-1); Eosinophil# 0.11 X10^3/uL; Eosinophils% 1.5 % (0-5); Hematocrit 37.3 % (37-47); Hemoglobin 13.2 g/dL (12.0-15.0); Lymphocyte # 2.26 X10^3/ul (0.83-4.51); Lymphocyte % 30.4 % (19-41); Mean Corp Hgb Conc 35.4 g/dL (32-36); Mean Corpuscular Hgb 31.5 pg (27.0-32.0); Mean Platelet Vol. 10.2 fl (6.2-12.0); Monocyte# 0.45 X10^3/uL; NRBC Flagged by Analyzer 0 % (0-5); Neutrophil # 4.57 X10^3/uL (2.7-7.7); Neutrophil % 61.4 % (47-70); Platelet Count 240 K/mm3 (150-450); RBC Distribution Width SD 38.8 fl (35.1-43.9); Red Blood Count 4.19 M/mm3 (4.2-5.4); White Blood Count 7.4 K/mm3 (4.4-11.0)
[2022-11-16 16:17] LABS: Erythrocyte Sedimentation Rate 6 mm/hr (0-30)
[2022-11-16 17:02] LABS: CRP < 2.90 mg/L (0.0-3.0)
== END | disposition home or self-care (01) ==
PROVIDERS: PCP Family Medicine; Referring Provider Internal Medicine Gastroenterology; Visit Provider Internal Medicine Gastroenterology
DX: K58.9 Irritable bowel syndrome, unspecified (principal)
CPT/HCPCS: 36415; 85025; 85652; 86140

== ENCOUNTER → 2023-05-11 | Outpatient (CLI) | payer MEDICAID, SELFPAY ==
[2023-05-11 14:46] LABS: T3 Total - Triiodothyronine 0.96 ng/mL (0.6-1.81)
[2023-05-11 14:52] LABS: Anion Gap 6 (5-15); BUN 13 mg/dL (7-18); BUN/Creat Ratio 17.6 RATIO (10-20); Calcium,Total 9.5 mg/dL (8.5-10.1); Chloride 108 mmol/L (98-107); Creatinine, Serum 0.74 mg/dL (0.55-1.02); EST Glomerular Filtration Rate 89 mL/min (>60); Est Glom Filt Rate - Afr Amer 108 mL/min (>60); Glucose 95 mg/dL (74-106); Magnesium 2.1 mg/dL (1.6-2.6); Potassium 3.6 mmol/L (3.5-5.1); Sodium Level 139 mmol/L (136-145); T4 Total, Thyroxin 7.5 ug/dL (4.8-13.9); Thyroid Stim Hormone (TSH) 1.03 uIU/mL (0.358-3.74)
[2023-05-18 06:11] LABS: Beef <0.10 kU/L (Class 0); Chocolate <0.10 kU/L (Class 0); Codfish <0.10 kU/L (Class 0); Corn <0.10 kU/L (Class 0); Egg, Whole <0.10 kU/L (Class 0); Milk (Cow) <0.10 kU/L (Class 0); Mussels <0.10 kU/L (Class 0); Peanut <0.10 kU/L (Class 0); Pork <0.10 kU/L (Class 0); Salmon <0.10 kU/L (Class 0); Shrimp <0.10 kU/L (Class 0); Soybean <0.10 kU/L (Class 0); Tuna <0.10 kU/L (Class 0); Wheat <0.10 kU/L (Class 0)
== END | disposition home or self-care (01) ==
LOC: LAB 13:31
PROVIDERS: PCP Family Medicine; Referring Provider Internal Medicine Gastroenterology; Visit Provider Internal Medicine Gastroenterology
DX: K58.9 Irritable bowel syndrome, unspecified (principal); G47.33 Obstructive sleep apnea (adult) (pediatric); R19.7 Diarrhea, unspecified
CPT/HCPCS: 36415; 80048; 83735; 84436; 84443; 84480; 86003; 86005

== ENCOUNTER → 2023-10-16 | Outpatient (CLI) | payer MEDICAID, SELFPAY ==
--- NOTE | 2023-10-16 09:53 | RAD_ITS ---
INDICATION: PAIN UNDER LEFT BREAST EXAMINATION/TECHNIQUE: X-RAY - XR Chest 2 Views COMPARISON: January 26, 2005. FINDINGS: LINES/DEVICES: None. LUNGS: No consolidation, edema or effusion. No pneumothorax. MEDIASTINUM AND CARDIOVASCULAR STRUCTURES: Cardiac silhouette not enlarged. BONES AND SOFT TISSUES: Right upper quadrant surgical clips are present. . RAD/Chest PA and Lateral IMPRESSION: No radiographic evidence of acute cardiopulmonary disease. Electronically Signed: Dl Alves MD at 22:06 EDT ,
[2023-10-16 13:07] LABS: AST(SGOT) 18 U/L (15-37); Alanine Aminotransfer ALT/SGPT 18 U/L (13-56); Albumin, Serum 3.6 g/dL (3.2-5.0); Alkaline Phosphatase 79 U/L (45-117); Anion Gap 7 (5-15); BUN 13 mg/dL (7-18); BUN/Creat Ratio 17.8 RATIO (10-20); Chloride 105 mmol/L (98-107); Cholesterol 184 mg/dL (200); Creatinine, Serum 0.73 mg/dL (0.55-1.02); EST Glomerular Filtration Rate 90 mL/min (>60); Est Glom Filt Rate - Afr Amer 109 mL/min (>60); Globulin 3.7 g/dL (2.2-4.2); Glucose 81 mg/dL (74-106); High Density Lipoprotein 72 mg/dL; Potassium 3.6 mmol/L (3.5-5.1); Protein, Total 7.3 g/dL (6.4-8.2); Sodium Level 137 mmol/L (136-145); Triglycerides 47 mg/dL; Very Low Density Lipoprotein 9 mg/dL (5-40)
== END | disposition home or self-care (01) ==
LOC: MTLAB 09:46
PROVIDERS: PCP Family Medicine; Referring Provider Family Medicine; Visit Provider Family Medicine
DX: R07.89 Other chest pain (principal); F32.1 Major depressive disorder, single episode, moderate; E66.9 Obesity, unspecified
CPT/HCPCS: 36415; 71046; 80053; 80061; 84443

== ENCOUNTER → 2023-10-23 | Outpatient (CLI) | payer MEDICAID, SELFPAY ==
--- NOTE | 2023-10-23 14:47 | BI_ITS ---
MAMMOGRAPHY - BILATERAL SCREENING REASON FOR EXAM: Female, 48 years old. Routine annual screening examination. PERTINENT HISTORY: Grandmother with breast cancer. History of prior left breast cyst aspiration. TECHNIQUE: Digital bilateral breast yung (3D mammographic acquisition) in the CC and MLO projections. 2-D mediolateral oblique (MLO) and craniocaudad (CC) views of both breasts were obtained. CAD: Full Field Digital Mammography with Computer Added Detection was performed. COMPARISON: Comparison is made with prior outside examination dated August 19, 2021. FINDINGS: Breast Composition: The breasts are almost entirely fatty. There are no dominant masses or suspicious calcifications. No other significant abnormalities are identified. There has been no significant change since the prior study. BI/SCRN MAMM (CAD)W/YUNG BILAT IMPRESSION: Stable bilateral screening mammogram. Yearly follow-up mammogram recommended. (A) ASSESSMENT CATEGORY: BIRADS Category 1: Negative. A letter regarding these results will be sent to the patient by the facility within 30 days. Approximately 10% of breast cancers are not detected by mammography. A normal mammogram should not delay biopsy of a clinically suspicious abnormality. [id number] Electronically Signed: Ochoa Friend MD at 15:25 EDT ,
== END | disposition home or self-care (01) ==
LOC: OPBI 14:25
PROVIDERS: PCP Family Medicine; Referring Provider Family Medicine; Visit Provider Family Medicine
DX: Z12.31 Encounter for screening mammogram for malignant neoplasm of breast (principal); Z80.3 Family history of malignant neoplasm of breast
CPT/HCPCS: 77063; 77067